=== PATIENT | female | born 1960 | race Caucasian/White ===

== ENCOUNTER → 2018-10-31 10:21 | Outpatient (CLI) | payer OTHER, SELFPAY | PROVIDERS: PCP Nurse Practitioner Family; Visit Provider Family Medicine | DX: S81.802A Unspecified open wound, left lower leg, initial encounter (principal); K70.30 Alcoholic cirrhosis of liver without ascites; D68.4 Acquired coagulation factor deficiency | CPT/HCPCS: 11042; 11045; 99203; 99212 ==

== ENCOUNTER → 2018-11-03 13:11 | Outpatient (CLI) | payer OTHER, SELFPAY | PROVIDERS: PCP Nurse Practitioner Family; Visit Provider Family Medicine | DX: S81.802D Unspecified open wound, left lower leg, subsequent encounter (principal) | CPT/HCPCS: 99213 ==

== ENCOUNTER → 2018-11-05 14:41 | Outpatient (CLI) | payer OTHER, MEDICAID, SELFPAY | PROVIDERS: PCP Nurse Practitioner Family; Visit Provider Family Medicine | DX: S81.802A Unspecified open wound, left lower leg, initial encounter (principal); K70.30 Alcoholic cirrhosis of liver without ascites; D68.4 Acquired coagulation factor deficiency | CPT/HCPCS: 11042; 97605 ==

== ENCOUNTER → 2018-11-10 13:04 | Outpatient (CLI) | payer OTHER, SELFPAY | PROVIDERS: PCP Nurse Practitioner Family; Visit Provider Family Medicine | DX: S81.802A Unspecified open wound, left lower leg, initial encounter (principal) | CPT/HCPCS: 97605; 99213 ==

== ENCOUNTER → 2018-11-12 13:12 | Outpatient (CLI) | payer OTHER, MEDICAID, SELFPAY | PROVIDERS: PCP Nurse Practitioner Family; Visit Provider Family Medicine | DX: S81.802A Unspecified open wound, left lower leg, initial encounter (principal); K70.30 Alcoholic cirrhosis of liver without ascites; D68.4 Acquired coagulation factor deficiency | CPT/HCPCS: 11042; 11045; 97605 ==

== ENCOUNTER → 2018-11-14 10:10 | Outpatient (CLI) | payer OTHER, MEDICAID, SELFPAY | PROVIDERS: PCP Nurse Practitioner Family; Visit Provider Family Medicine | DX: S81.802A Unspecified open wound, left lower leg, initial encounter (principal) | CPT/HCPCS: 97605 ==

== ENCOUNTER → 2018-11-17 13:02 | Outpatient (CLI) | payer OTHER, MEDICAID, SELFPAY | PROVIDERS: PCP Nurse Practitioner Family; Visit Provider Family Medicine | DX: S81.802A Unspecified open wound, left lower leg, initial encounter (principal) | CPT/HCPCS: 97605 ==

== ENCOUNTER → 2018-11-19 14:41 | Outpatient (CLI) | payer OTHER, MEDICAID, SELFPAY | PROVIDERS: PCP Nurse Practitioner Family; Visit Provider Family Medicine | DX: S81.802A Unspecified open wound, left lower leg, initial encounter (principal) | CPT/HCPCS: 99211 ==

== ENCOUNTER → 2018-11-21 13:36 | Outpatient (CLI) | payer OTHER, MEDICAID, SELFPAY | PROVIDERS: PCP Nurse Practitioner Family; Visit Provider Family Medicine | DX: S81.802A Unspecified open wound, left lower leg, initial encounter (principal) | CPT/HCPCS: 11042; 97605 ==

== ENCOUNTER → 2018-11-26 13:00 | Outpatient (CLI) | payer OTHER, MEDICAID, SELFPAY | PROVIDERS: PCP Nurse Practitioner Family; Visit Provider Family Medicine | DX: S81.802A Unspecified open wound, left lower leg, initial encounter (principal) | CPT/HCPCS: 97605 ==

== ENCOUNTER → 2018-11-28 13:09 | Outpatient (CLI) | payer OTHER, MEDICAID, SELFPAY | PROVIDERS: PCP Nurse Practitioner Family; Visit Provider Family Medicine | DX: S81.802A Unspecified open wound, left lower leg, initial encounter (principal); K70.30 Alcoholic cirrhosis of liver without ascites; D68.4 Acquired coagulation factor deficiency | CPT/HCPCS: 11042; 99212 ==

== ENCOUNTER → 2018-12-01 13:13 | Outpatient (CLI) | payer OTHER, MEDICAID, SELFPAY | PROVIDERS: PCP Nurse Practitioner Family; Visit Provider Family Medicine | DX: S81.802A Unspecified open wound, left lower leg, initial encounter (principal); K70.30 Alcoholic cirrhosis of liver without ascites; D68.4 Acquired coagulation factor deficiency | CPT/HCPCS: 11042; 87070; 87075; 87205 ==

== ENCOUNTER → 2018-12-05 13:14 | Outpatient (CLI) | payer OTHER, MEDICAID, SELFPAY | PROVIDERS: PCP Nurse Practitioner Family; Visit Provider Family Medicine | DX: S81.802A Unspecified open wound, left lower leg, initial encounter (principal); K70.30 Alcoholic cirrhosis of liver without ascites; D68.4 Acquired coagulation factor deficiency; L08.9 Local infection of the skin and subcutaneous tissue, unspecified | CPT/HCPCS: 97597; 99214 ==

== ENCOUNTER → 2018-12-12 13:17 | Outpatient (CLI) | payer OTHER, MEDICAID, SELFPAY | PROVIDERS: PCP Nurse Practitioner Family; Visit Provider Family Medicine | DX: S81.802A Unspecified open wound, left lower leg, initial encounter (principal); K70.30 Alcoholic cirrhosis of liver without ascites; D68.4 Acquired coagulation factor deficiency; L08.9 Local infection of the skin and subcutaneous tissue, unspecified; T88.7XXA Unspecified adverse effect of drug or medicament, initial encounter | CPT/HCPCS: 17250; 99213 ==

== ENCOUNTER → 2018-12-18 14:47 | Outpatient (CLI) | payer OTHER, MEDICAID, SELFPAY | PROVIDERS: PCP Nurse Practitioner Family; Visit Provider Family Medicine | DX: S81.802A Unspecified open wound, left lower leg, initial encounter (principal) | CPT/HCPCS: 17250; 99214 ==

== ENCOUNTER 2018-12-18 16:23 | Emergency (ER) | payer OTHER, MEDICAID, SELFPAY ==
[2018-12-18 16:30] VITALS: BP 173/110; PULSE 105; RESP 18; TEMP 36.9; O2SAT 100
--- NOTE | 2018-12-18 16:32 | ED.EXTPRO ---
HPI - Extremity Problem <Babs Garsia PA-C - Last Filed: 12/18/18 20:49> General Chief complaint: Extremity Problem,Nontraumatic Stated complaint: RT 1ST TOE PAIN Time Seen by Provider: 12/18/18 16:31 Source: patient Mode of arrival: ambulatory Limitations: no limitations History of Present Illness HPI Narrative: Patient is sent here from [facility], where she has been undergoing treatment for left thigh hematoma, due to right great toe swelling and pain. They noted this when she was there today. She states that she was out gardening wearing sandals on Saturday, and started to notice pain and swelling and dark under the nail Saturday morning. She states pain was actually significantly worse on Saturday night and has gradually improved since then to where she barely feels it now. She states she has been using Neosporin, also tried Epsom salts but he seemed increased pain, ice has helped. She states that she does not know of any specific bites or injury, denies any new trauma. She states that she has been on clindamycin from the wound Center which was stopped on Saturday due to diarrhea, was changed to doxy and she has vomiting on that, last early this morning. This was discontinued at the wound center today. She states that she has been drinking Gatorade, still has some nausea. She states she has not had any fever with this toe lesion. She has not noted any spread of redness or new color changes in the last day or so. Related Data Allergies Allergy/AdvReac Type Severity Reaction Status Date / Time Iodine and Iodide Containing Allergy Verified 12/18/18 16:41 Produc Penicillins Allergy Verified 12/18/18 16:41 Review of Systems <Babs Garsia PA-C - Last Filed: 12/18/18 20:49> Review of Systems ROS Unobtainable: All systems reviewed & are unremarkable except as noted in HPI and below PFSH <Babs Garsia PA-C - Last Filed: 12/18/18 20:49> Medical History (Updated 12/18/18 @ 20:48 by Babs Garsia PA-C) Heart murmur (Chronic) No chronic problems (Inactive) Surgical History H/O removal of thyroglossal duct cyst (Chronic) Social History Smoking Status: Never smoker Social History Smoking Status: Never smoker Exam <Babs Garsia PA-C - Last Filed: 12/18/18 20:49> Narrative Exam Narrative: GENERAL APPEARANCE: Patient sitting comfortably, in no distress. LUNGS: Clear to auscultation bilaterally. HEART: Rate and rhythm regular with II/ systolic ejection murmur, normal S1 and S2, no S3 or S4. DERM: Right great toenail is loose with a 100% underlying subungual hematoma. Minimal erythema at the borders. There is small patch of scab on the right great toe pad plantar surface and 2 small scab schmitt on the medial border. Skin feels slightly spongy but no circumscribed fluid collection palpable or visible MUSCULOSKELETAL: No bony tenderness over the right great toe or metatarsal, full range of motion with strength intact against resistance NEUROVASCULAR: Right foot warm and pink, PT and DP pulses 2+ Initial Vital Signs Initial Vital Signs: Vital Signs Temperature 98.4 F 12/18/18 16:30 Pulse Rate 105 H 12/18/18 16:30 Respiratory Rate 18 12/18/18 16:30 Blood Pressure 173/110 H 12/18/18 16:30 Pulse Oximetry 100 12/18/18 16:30 <Elvia Rashid DO - Last Filed: 12/22/18 19:08> Initial Vital Signs Initial Vital Signs: Vital Signs Temperature 98.4 F 12/18/18 16:30 Pulse Rate 105 H 12/18/18 16:30 Respiratory Rate 18 12/18/18 16:30 Blood Pressure 173/110 H 12/18/18 16:30 Pulse Oximetry 100 12/18/18 16:30 Course <Babs Garsia PA-C - Last Filed: 12/18/18 20:49> Additional Information: Reviewed findings with Dr. Rashid who also saw the patient. We do suspect this is related to bite, probably spider, since she was out in the garden barefoot and in sandals prior to this starting. She has not had any worsening pain, swelling or redness and is actually much improved from a couple of days ago. Suspect her hypertension and tachycardia are and related as she has had vomiting and diarrhea from her antibiotics, however she stopped those as of this morning and is not having vomiting this afternoon. Advised follow-up with PCP tomorrow for recheck before the weekend, and she is agreeable with this plan as well as to return if looking acutely worse over the weekend Orders Ordered: Discontinued Medications Ondansetron HCl (Zofran Odt) 4 mg SL NOW ONE Stop: 12/18/18 16:44 Last Admin: 12/18/18 16:57 Dose: 4 mg Vital Signs - 8 hr 12/18/18 16:30 12/18/18 18:03 Temperature 98.4 F Pulse Rate 105 H 70 Respiratory Rate 18 17 Blood Pressure 173/110 H 169/70 H Pulse Oximetry 100 96 <Evlia Rashid, - Last Filed: 12/22/18 19:08> Orders Ordered: Discontinued Medications Ondansetron HCl (Zofran Odt) 4 mg SL NOW ONE Stop: 12/18/18 16:44 Last Admin: 12/18/18 16:57 Dose: 4 mg Vital Signs - 8 hr 12/18/18 16:30 12/18/18 18:03 Temperature 98.4 F Pulse Rate 105 H 70 Respiratory Rate 18 17 Blood Pressure 173/110 H 169/70 H Pulse Oximetry 100 96 Discharge Plan Departure Patient Disposition: Home Clinical Impression: Subungual hematoma Spider bite wound Qualifiers: Encounter type: initial encounter Injury intent: accidental or unintentional Qualified Code(s): T63.301A - Toxic effect of unspecified spider venom, accidental (unintentional), initial encounter Discharge Date/Time: 12/18/18 18:05 Interventions: ED Discharge Assessment Last Done: 12/18/18 18:03 Instructions: DI for Spider Bites, DI for Subungual Hematoma Activity Restrictions/Additional Instructions: Since the pain in your toe is much better, and you do not have any worsening swelling or skin changes as, you can monitor this at home. The nail is already loose and will likely fall off at some point, but for now it is protecting the nail bed. You may want to bandage it for protection when you are out in about, you can leave it open to air when you are resting. You can do hot soaks if you like. There are schmitt on your toe that may be due to a spider bite, especially since you do have brown recluse in your area and were out in the garden before this began. You do not appear to have an acute infection, however since you have been on antibiotics recently this should be watched. Please call your PCP 1st thing in the morning and let them know that you were seen here and we would like you to recheck this tomorrow so that it can be reassessed prior to the weekend with you off of the antibiotics. Please return here as we talked about if you have any acutely worsening pain or swelling again or new symptoms such as spreading redness or fever. Referrals: Ileana Pritchard ARNP [Primary Care Provider] - <Elvia Rashid DO - Last Filed: 12/22/18 19:08> Cosign ED Attending Cosignature Attestation: I was immediately available in the department for consultation. This documentation has been reviewed and I agree with assessment and plan. Supervised by Elvia Rashid DO
--- NOTE | 2018-12-18 16:43 | DI.RAD.S_ITS ---
PROCEDURE: XR FOOT RT MIN 3V INDICATIONS: great toe pain, hematoma, no trauma TECHNIQUE: 3 views of the foot were acquired. COMPARISON: None. FINDINGS: Bones: No fractures or dislocations. No suspicious bony lesions. Age-appropriate bony degenerative changes are seen. Soft tissues: Tissue swelling is seen of the great toe. No radiopaque or bodies are seen. IMPRESSION: Soft tissue swelling of the great toe, without an underlying bony abnormality seen. No radiopaque or bodies are seen. Dictated by: Oscar Sue M.D. on 12/18/2018 at 16:06 Approved by: Oscar Sue M.D. on 12/18/2018 at 16:07
[2018-12-18] MEDS: ONDANSETRON 4 MG ODT SL (16:57)
[2018-12-18 18:03] VITALS: BP 169/70; PULSE 70; RESP 17; O2SAT 96
== END 2018-12-18 18:05 | disposition home or self-care (01) ==
PROVIDERS: Emergency Provider Internal Medicine; PCP Nurse Practitioner Family; Referring Provider Family Medicine
DX: S90.411A Abrasion, right great toe, initial encounter (principal); T63.301A Toxic effect of unspecified spider venom, accidental (unintentional), initial encounter; R00.0 Tachycardia, unspecified; R03.0 Elevated blood-pressure reading, without diagnosis of hypertension
CPT/HCPCS: 73630; 93041; 99283

== ENCOUNTER → 2019-01-01 13:07 | Outpatient (CLI) | payer OTHER, MEDICAID, SELFPAY | PROVIDERS: PCP Nurse Practitioner Family; Visit Provider Family Medicine | DX: S81.802A Unspecified open wound, left lower leg, initial encounter (principal); K70.30 Alcoholic cirrhosis of liver without ascites; D68.4 Acquired coagulation factor deficiency | CPT/HCPCS: 17250 ==

== ENCOUNTER → 2019-01-08 13:16 | Outpatient (CLI) | payer OTHER, MEDICAID, SELFPAY | PROVIDERS: PCP Nurse Practitioner Family; Visit Provider Family Medicine | DX: S81.802D Unspecified open wound, left lower leg, subsequent encounter (principal); K70.30 Alcoholic cirrhosis of liver without ascites; D68.4 Acquired coagulation factor deficiency | CPT/HCPCS: 99213 ==

== ENCOUNTER → 2019-01-20 13:16 | Outpatient (CLI) | payer OTHER, MEDICAID, SELFPAY | PROVIDERS: PCP Nurse Practitioner Family; Visit Provider Family Medicine | DX: Z48.817 Encounter for surgical aftercare following surgery on the skin and subcutaneous tissue (principal) | CPT/HCPCS: 99212; 99213 ==

== ENCOUNTER 2019-02-12 14:15 | Outpatient (RCR) | payer OTHER, MEDICAID, SELFPAY ==
--- NOTE | 2019-01-01 12:50 | PT.OIE ---
Current Diagnoses Cervicalgia (01/01/19) Other abnormalities of gait and mobility (01/01/19) Past Medical History (Last Updated 12/18/18 @ 20:48 by Babs Garsia PA-C) Heart murmur (Chronic) No chronic problems (Inactive) Past Surgical History (Last Reviewed 12/18/18 @ 16:52 by Babs Garsia PA-C) H/O removal of thyroglossal duct cyst (Chronic) Provider Visit Care Team Role Provider Type ROXIE Bernard Attending Provider Non-Staff Primary Care Provider Specialty: Medical Address: [address] , [place], [address] Email: Physical Therapy Initial Evaluation PT-OP-A Visit Information Start: 01/01/19 11:22 Freq: Status: Active Protocol: Document 01/01/19 10:30 HH (Rec: 01/01/19 12:02 [email or web address]) Out-Patient Physical Therapy Visit Information Visit Information Visit Type Initial Evaluation Visit Start Time 10:30 Visit Stop Time 11:15 Total Visit Minutes 45 Visit Number 1/9 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 Pt fell on her L lateral hip 3 months ago and had a large hematoma who had a hematoma removal surgery followed by wound vac for 2 months. She is currently going to wound clinic at for follow ups. She reports her L hip and gait stability has gotten worse since then. She currently cannot sleep on her L side anymore. In addition, her neck pain started 2 months ago most likely due to her sleeping position. Her neck pain limits her to turn her head now while driving and feels like rotated to right all the time, along with constant headache from the back of the skull. She tried ice, lidocane, heat pad but they only helped minimally. Her referring physician told her to cont her activities as tolerated without restriction. She also got bitten at the R big toe by a raccoon 2 weeks and had a staff infection. Future Testing and Treatments Planned Currently attending wound clinic for her L hip Treatment Goals Patient/Caregiver Goals 1. Able to return her exercise routine : racquet ball, hiking, walk at [employer] 3times /week 2. To reduce her neck pain 3. able to sit and sleep on her L side Prior Functional Status Baseline Function- ADL's Independent Baseline Function- Mobility Independent Baseline Function- Gait normal gait Baseline Function- Recreation/Hobbies Active in playing racquet ball , hiking, walk at [employer] 3 times/ week Baseline Function- Other able to sit and sleep on her L side able to turn her head without pain while driving able Current Functional Impairments (Reported) Functional Limitations- ADL's unable to sit /sleep on her L side Functional Limitations- Mobility/Gait antaglic gait on LLE noticed Functional Limitations- Recreation/ unable to play sports, hike Hobbies and long walk only able to tolerate 1/4 mile of walking distance Personal Factors Other Personal Factors That May Effect her current wound on L thigh Therapy/Recovery PT-OP-C Subjective Start: 01/01/19 11:22 Freq: Status: Active Protocol: Document 01/01/19 10:30 (Rec: 01/01/19 12:02 [email or web address]) OP-PT Subjective Patient Comments Patient Comments the neck pain is worse than my hip Patient Reported Progress Worse Patient Questionnaires Foot & Ankle Ability Measure- ADL and Sports FAAM-ADL Score 34 FAAM-ADL Impairment 40 to 59% Impaired (Score 33- 49) FAAM-Sport Score 13 FAAM-Sport Impairment 40 to 59% Impaired (Score 12- 18) Lower Extremity Functional Scale LEFS Score 25 LEFS Impairment 60 to 79% Impaired (Score 17- 31) Neck Disability Index NDI Score 25 Neck Disability Index Impairment 40 to 59% Impaired (Score 20- 29) OP-PT Pain Assessment Location Neck Intensity 6 Scale Used Numeric (1 - 10) Description Aching Dull Frequency Constant Pain Aggravating Factors Position Activity Exercise Standing Sitting Pain Alleviating Factors Cold Heat Inactivity Lying Supine L hip Pain Location Details lateral thigh Intensity 6 Scale Used Numeric (1 - 10) Description Aching Dull Frequency Frequent Pain Aggravating Factors Position Activity Exercise Sitting Pain Alleviating Factors Cold Heat Inactivity Lying Supine PT-OP-F Manual Assessment Start: 01/01/19 11:22 Freq: Status: Active Protocol: Document 01/01/19 10:30 HH (Rec: 01/01/19 12:02 [email or web address]) Manual Assessments Soft Tissue Assessment Soft Tissue Mobility Assessment Significant tenderness to pressure on suboccipitals R>L, cervical paraspinals and trapezius Significant sensitive to touch on L trochanteric region Joint Mobility Assessment Joint Mobility Assessment muscle guarding and spasm to touch noticed during assessment. Unable to assess joint mobility PT-OP-G Mobility & Gait Start: 01/01/19 11:22 Freq: Status: Active Protocol: Document 01/01/19 10:30 HH (Rec: 01/01/19 12:02 [email or web address]) OP Mobility Evaluation Bed Mobility Supine to and from Sit Pt has to support her r side of the neck OP Gait Assessment Gait Gait Assistance Required: Independent Assistive Devices Assistive Device None Gait Deviations General Gait Pattern Antalgic Decreased Stride Length Decreased Feet Clearance Factors Limiting Gait Function Factors Limiting Gait Function Decreased Activity Tolerance Decreased Strength Limited Range of Motion Pain Poor Balance Comments Gait Comments L antalgic gait noticed. Insufficient heel strike and early heel raise from terminal stance on LLE. PT-OP-J Posture/Palpation/Skin Start: 01/01/19 11:22 Freq: Status: Active Protocol: Document 01/01/19 10:30 HH (Rec: 01/01/19 12:02 [email or web address]) Posture Evaluation Position Standing Evaluation View Anterior Head/C-Spine Posture Rotated Right Forward Head T-Spine Posture Increased Kyphosis Shoulder Posture (R) Elevated Weight Distribution Weight Shifted Right PT-OP-K Range of Motion Start: 01/01/19 11:22 Freq: Status: Active Protocol: Document 01/01/19 10:30 HH (Rec: 01/01/19 12:02 [email or web address]) Cervical Spine Range of Motion Cervical Spine Active Degrees Testing Position Sitting Flexion 40 Extension 40 Rotation Left 35 Rotation Right 40 Lateral Flexion Left 35 Lateral Flexion Right 35 ROM Limitations Muscle Weakness Muscle Tone Pain Comments Severe pain at end range during AROM (ext > rotation > lateral flexion) Hip Goniometric Range of Motion Hip Right Active Hip ROM WFL Yes Flexion w/Knee Flexed 120 Extension 20 Abduction 40 Left Active Hip ROM WFL Yes Flexion w/Knee Flexed 120 Extension 20 Abduction 40 PT-OP-M Strength Start: 01/01/19 11:22 Freq: Status: Active Protocol: Document 01/01/19 10:30 HH (Rec: 01/01/19 12:02 [email or web address]) Cervical Spine Strength Cervical Spine Manual Muscle Testing Testing Position Sitting Flexion (C1-2) 3+ Fair+ Extension 3 Fair Rotation Left 3 Fair Rotation Right 3 Fair Lateral Flexion Left (C3) 3 Fair Lateral Flexion Right (C3) 3 Fair Reason Not Measured Muscle Tone Pain Comments pt presents fear avoidance for muscle contraction, along with significant pain. Noticeable spasm on cervical paraspinals and trapezius. Hip Strength Hip Manual Muscle Testing Right Flexion (L2) 5 Normal Extension (S1) 5 Normal Abduction 5 Normal Adduction 5 Normal Left Flexion (L2) 4+ Good+ Extension (S1) 4+ Good+ Abduction 4- Good- Adduction 4+ Good+ PT-OP-Q Treatments Start: 01/01/19 11:22 Freq: Status: Active Protocol: Document 01/01/19 10:30 HH (Rec: 01/01/19 12:02 [email or web address]) Manual Therapy Treatment Soft Tissue Mobilization suboccipital release Mobilization Type Strumming Sustained Pressure Trigger Point Release Intensity/Depth Superficial Body Position Supine Manual Traction cervical distraction Body Position Supine Reps/Duration 5 mins PT-OP-T Assessment and Plan Start: 01/01/19 11:22 Freq: Status: Active Protocol: Document 01/01/19 10:30 HH (Rec: 01/01/19 12:02 [email or web address]) Physical Therapy Assessment Rehab Potential Rehabilitation Potential Good Evaluation Complexity Number of Personal Factors/Comorbidities 1-2 Number of Body Systems Impaired 1-2 Clinical Presentation at Evaluation Stable Impairments Impairments Activity Tolerance Balance Edema Functional Activities Functional Mobility Gait Pain Posture ROM Sensation Soft Tissue Mobility Strength Tone Goals HEP Impairment Pt does not have a HEP Watch Assembler Goal (LTG) Pt will comply to HEP independently and safely to improve overall functional strength and mobiltiy therefore she could return to her PLOF (play raquet ball, hiking ..etc) LTG Duration 10 weeks activity tolerance Impairment unable to claude > 1/4 mile of walking distance Halfway Goal (LTG) Pt will be able to walk 1 mile 3 times a week to improve overall activity tolerance and functional mobility. 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 LTG Duration 10 weeks Assessment Summary Assessment Pt is a 58 yo female presents to clinic with severe neck pain and L hip after a fall 3 months ago. Upon assessment, pt appears very anxious with any cervical movements and pressure/touch on L thigh ( surgical site). Pt currently is unable to sit/ lay on her L side who also uses UE support on his R side of the neck for supine to sit / static sitting. Her hypersensitivity to touch and pressure on cervical region makes assessment difficult. There's noticeable muscle spasm and increase muscular activation on R upper trap and paraspinals. However, her L hip strength and ROM appears close to WFL but cont to have L antalgic gait. Will need to her single leg balance for next visit. Suboccipital release and cervical traction were given at the end of session but pt appears very afraid to any cervical movements. Constant cues needed for deep breathing and relaxation. Pt will be a good candidate for skilled therapy to address aforementioned symptoms through gait training , relaxation techniques, neuromuscular reeducation and overall strengthening in order to return to her PLOF. Physical Therapy Plan Frequency and Duration Frequency of Treatment 2x/Week Duration of Treatment 10 weeks Plan of Care Start Date 01/01/19 Plan of Care End Date 03/03/19 Therapeutic Interventions Therapeutic Interventions Aquatic Therapy Balance Training Gait Training Home Exercise Program Joint Mobilizations Manual Therapy Neuromuscular Re-education Patient/Caregiver Education Self-Care/Home Management Soft Tissue Mobilization Taping Therapeutic Activities Therapeutic Exercises Modalities Cold Pack/Ice Massage Electric Stimulation Hot Packs Infrared Therapy Traction- Mechanical Ultrasound Next Visit Focus/Plan Next Note Type Treatment Note Next Visit Plan check single leg balance to provide self cervical shoulder stretch / ROM HEP manual therapy, relaxation, deep breathing ex as claude hip strengthening as claude gait training
--- NOTE | 2019-01-07 15:51 | PT.OTN ---
Current Diagnoses Cervicalgia (01/07/19) Other abnormalities of gait and mobility (01/07/19) Physical Therapy Treatment Note PT-OP-A Visit Information Start: 01/01/19 11:22 Freq: Status: Active Protocol: Document 01/07/19 15:41 [facility]AK (Rec: 01/07/19 15:51 SAK [id number]) Out-Patient Physical Therapy Visit Information Visit Information Visit Type Treatment Note Visit Start Time 14:30 Visit Stop Time 15:30 Total Visit Minutes 60 Visit Number 2/9 Number of JIGMAKER Visits 0 Evaluation Information Evaluation Date 01/01/19 PT-OP-B Current Condition Start: 01/01/19 11:22 Freq: Status: Active Protocol: Document 01/01/19 10:30 HH (Rec: 01/01/19 12:02 HH [email or web address]) Current Condition History of Current Condition Onset Date 3 months ago Current Complaints sever neck pain, L hip pain and impaired gait History of Current Condition Pt presents to clinic today with primary c/o of severe neck pain R>L, L hip pain and abnormal gait. Pt fell on her L lateral hip 3 months ago and had a large hematoma who had a hematoma removal surgery followed by wound vac for 2 months. She is currently going to wound clinic at for follow ups. She reports her L hip and gait stability has gotten worse since then. She currently cannot sleep on her L side anymore. In addition, her neck pain started 2 months ago most likely due to her sleeping position. Her neck pain limits her to turn her head now while driving and feels like rotated to right all the time, along with constant headache from the back of the skull. She tried ice, lidocane, heat pad but they only helped minimally. Her referring physician told her to cont her activities as tolerated without restriction. She also got bitten at the R big toe by a raccoon 2 weeks and had a staff infection. Future Testing and Treatments Planned Currently attending wound clinic for her L hip Treatment Goals Patient/Caregiver Goals 1. Able to return her exercise routine : racquet ball, hiking, walk at [facility] 3times /week 2. To reduce her neck pain 3. able to sit and sleep on her L side Prior Functional Status Baseline Function- ADL's Independent Baseline Function- Mobility Independent Baseline Function- Gait normal gait Baseline Function- Recreation/Hobbies Active in playing racquet ball , hiking, walk at [facility] 3 times/ week Baseline Function- Other able to sit and sleep on her L side able to turn her head without pain while driving able Current Functional Impairments (Reported) Functional Limitations- ADL's unable to sit /sleep on her L side Functional Limitations- Mobility/Gait antaglic gait on LLE noticed Functional Limitations- Recreation/ unable to play sports, hike Hobbies and long walk only able to tolerate 1/4 mile of walking distance Personal Factors Other Personal Factors That May Effect her current wound on L thigh Therapy/Recovery PT-OP-C Subjective Start: 01/01/19 11:22 Freq: Status: Active Protocol: Document 01/01/19 10:30 HH (Rec: 01/01/19 12:02 HH [email or web address]) OP-PT Subjective Patient Comments Patient Comments the neck pain is worse than my hip Patient Reported Progress Worse Patient Questionnaires Foot & Ankle Ability Measure- ADL and Sports FAAM-ADL Score 34 FAAM-ADL Impairment 40 to 59% Impaired (Score 33- 49) FAAM-Sport Score 13 FAAM-Sport Impairment 40 to 59% Impaired (Score 12- 18) Lower Extremity Functional Scale LEFS Score 25 LEFS Impairment 60 to 79% Impaired (Score 17- 31) Neck Disability Index NDI Score 25 Neck Disability Index Impairment 40 to 59% Impaired (Score 20- 29) OP-PT Pain Assessment Location Neck Intensity 6 Scale Used Numeric (1 - 10) Description Aching Dull Frequency Constant Pain Aggravating Factors Position Activity Exercise Standing Sitting Pain Alleviating Factors Cold Heat Inactivity Lying Supine L hip Pain Location Details lateral thigh Intensity 6 Scale Used Numeric (1 - 10) Description Aching Dull Frequency Frequent Pain Aggravating Factors Position Activity Exercise Sitting Pain Alleviating Factors Cold Heat Inactivity Lying Supine PT-OP-F Manual Assessment Start: 01/01/19 11:22 Freq: Status: Active Protocol: Document 01/01/19 10:30 HH (Rec: 01/01/19 12:02 HH [email or web address]) Manual Assessments Soft Tissue Assessment Soft Tissue Mobility Assessment Significant tenderness to pressure on suboccipitals R>L, cervical paraspinals and trapezius Significant sensitive to touch on L trochanteric region Joint Mobility Assessment Joint Mobility Assessment muscle guarding and spasm to touch noticed during assessment. Unable to assess joint mobility PT-OP-G Mobility & Gait Start: 01/01/19 11:22 Freq: Status: Active Protocol: Document 01/01/19 10:30 HH (Rec: 01/01/19 12:02 [email or web address]) OP Mobility Evaluation Bed Mobility Supine to and from Sit Pt has to support her r side of the neck OP Gait Assessment Gait Gait Assistance Required: Independent Assistive Devices Assistive Device None Gait Deviations General Gait Pattern Antalgic Decreased Stride Length Decreased Feet Clearance Factors Limiting Gait Function Factors Limiting Gait Function Decreased Activity Tolerance Decreased Strength Limited Range of Motion Pain Poor Balance Comments Gait Comments L antalgic gait noticed. Insufficient heel strike and early heel raise from terminal stance on LLE. PT-OP-J Posture/Palpation/Skin Start: 01/01/19 11:22 Freq: Status: Active Protocol: Document 01/01/19 10:30 HH (Rec: 01/01/19 12:02 [email or web address]) Posture Evaluation Position Standing Evaluation View Anterior Head/C-Spine Posture Rotated Right Forward Head T-Spine Posture Increased Kyphosis Shoulder Posture (R) Elevated Weight Distribution Weight Shifted Right PT-OP-K Range of Motion Start: 01/01/19 11:22 Freq: Status: Active Protocol: Document 01/01/19 10:30 HH (Rec: 01/01/19 12:02 [email or web address]) Cervical Spine Range of Motion Cervical Spine Active Degrees Testing Position Sitting Flexion 40 Extension 40 Rotation Left 35 Rotation Right 40 Lateral Flexion Left 35 Lateral Flexion Right 35 ROM Limitations Muscle Weakness Muscle Tone Pain Comments Severe pain at end range during AROM (ext > rotation > lateral flexion) Hip Goniometric Range of Motion Hip Right Active Hip ROM WFL Yes Flexion w/Knee Flexed 120 Extension 20 Abduction 40 Left Active Hip ROM WFL Yes Flexion w/Knee Flexed 120 Extension 20 Abduction 40 PT-OP-M Strength Start: 01/01/19 11:22 Freq: Status: Active Protocol: Document 01/01/19 10:30 HH (Rec: 01/01/19 12:02 [email or web address]) Cervical Spine Strength Cervical Spine Manual Muscle Testing Testing Position Sitting Flexion (C1-2) 3+ Fair+ Extension 3 Fair Rotation Left 3 Fair Rotation Right 3 Fair Lateral Flexion Left (C3) 3 Fair Lateral Flexion Right (C3) 3 Fair Reason Not Measured Muscle Tone Pain Comments pt presents fear avoidance for muscle contraction, along with significant pain. Noticeable spasm on cervical paraspinals and trapezius. Hip Strength Hip Manual Muscle Testing Right Flexion (L2) 5 Normal Extension (S1) 5 Normal Abduction 5 Normal Adduction 5 Normal Left Flexion (L2) 4+ Good+ Extension (S1) 4+ Good+ Abduction 4- Good- Adduction 4+ Good+ PT-OP-Q Treatments Start: 01/01/19 11:22 Freq: Status: Active Protocol: Document 01/07/19 15:41 [facility] (Rec: 01/07/19 15:51 [facility] [id number]) Therapeutic Exercises Supine Exercises hip ab/ER Equipment Used L2 TB Reps/Minutes 10x pillow squeeze Reps/Minutes 10x gluteal set Reps/Minutes 10x cervical rotation Reps/Minutes 5x2 Comments pain-freeROM Shld flex Reps/Minutes 10x active, plus endrange stretch x 30 pec stretch Reps/Minutes 2x30 Comments passive, manual chin tuck Comments refused due to pain Standing Exercises shld ER Resistance L1 TB Reps/Minutes 10x row Resistance L1 TB Reps/Minutes 10x wall posture Reps/Minutes 3 min Manual Therapy Treatment Soft Tissue Mobilization christine UT, c/s Intensity/Depth Moderate Body Position Hooklying suboccipital release Mobilization Type Strumming Sustained Pressure Trigger Point Release Intensity/Depth Moderate Body Position Supine Manual Techniques 1 Type contract/relax eyes for c/s rotation Body Position Hooklying Self-Care/Home Management Treatment Education Patient Education Home Exercise Program Pain Management Posture Other Education issued written HEP PT-OP-R Modalities Start: 01/01/19 11:22 Freq: Status: Active Protocol: Document 01/07/19 15:41 [facility] (Rec: 01/07/19 15:51 [facility] [id number]) Hot Pack/Cold Pack Treatment Hot Pack Patient Position Hooklying Treatment Duration (minutes) 15 Patient Tolerance Good PT-OP-T Assessment and Plan Start: 01/01/19 11:22 Freq: Status: Active Protocol: Document 01/07/19 15:41 [facility] (Rec: 01/07/19 15:51 [facility] [id number]) Physical Therapy Assessment Goals HEP Impairment Pt does not have a HEP Penitentiary Goal (LTG) Pt will comply to HEP independently and safely to improve overall functional strength and mobiltiy therefore she could return to her PLOF (play raquet ball, hiking ..etc) LTG Duration 10 weeks activity tolerance Impairment unable to claude > 1/4 mile of walking distance Pool Attendant Goal (LTG) Pt will be able to walk 1 mile 3 times a week to improve overall activity tolerance and functional mobility. 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 LTG Duration 10 weeks Assessment Summary Assessment Patient demonstrated good understanding of importance of postural correction to decrease stress to neck joints and overactivation of musculature. Improved tolerance for manual treatment and patient reported decreased pain with moist heat . Difficult to achieve suboccipital release due to muscle tension. Physical Therapy Plan Frequency and Duration Frequency of Treatment 2x/Week Duration of Treatment 10 weeks Plan of Care Start Date 01/01/19 Plan of Care End Date 03/03/19 Therapeutic Interventions Therapeutic Interventions Aquatic Therapy Balance Training Gait Training Home Exercise Program Joint Mobilizations Manual Therapy Neuromuscular Re-education Patient/Caregiver Education Self-Care/Home Management Soft Tissue Mobilization Taping Therapeutic Activities Therapeutic Exercises Modalities Cold Pack/Ice Massage Electric Stimulation Hot Packs Infrared Therapy Traction- Mechanical Ultrasound Next Visit Focus/Plan Next Note Type Treatment Note Next Visit Plan Assess response to today's treatment, progress HEP as tolerated. Continue with manual treatment, modalities, ther ex, and patient education as tolerated
--- NOTE | 2019-01-07 15:52 | PT.OTN ---
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 Pt fell on her L lateral hip 3 months ago and had a large hematoma who had a hematoma removal surgery followed by wound vac for 2 months. She is currently going to wound clinic at for follow ups. She reports her L hip and gait stability has gotten worse since then. She currently cannot sleep on her L side anymore. In addition, her neck pain started 2 months ago most likely due to her sleeping position. Her neck pain limits her to turn her head now while driving and feels like rotated to right all the time, along with constant headache from the back of the skull. She tried ice, lidocane, heat pad but they only helped minimally. Her referring physician told her to cont her activities as tolerated without restriction. She also got bitten at the R big toe by a raccoon 2 weeks and had a staff infection. Future Testing and Treatments Planned Currently attending wound clinic for her L hip Treatment Goals Patient/Caregiver Goals 1. Able to return her exercise routine : racquet ball, hiking, walk at [facility] 3times /week 2. To reduce her neck pain 3. able to sit and sleep on her L side Prior Functional Status Baseline Function- ADL's Independent Baseline Function- Mobility Independent Baseline Function- Gait normal gait Baseline Function- Recreation/Hobbies Active in playing racquet ball , hiking, walk at [facility] 3 times/ week Baseline Function- Other able to sit and sleep on her L side able to turn her head without pain while driving able Current Functional Impairments (Reported) Functional Limitations- ADL's unable to sit /sleep on her L side Functional Limitations- Mobility/Gait antaglic gait on LLE noticed Functional Limitations- Recreation/ unable to play sports, hike Hobbies and long walk only able to tolerate 1/4 mile of walking distance Personal Factors Other Personal Factors That May Effect her current wound on L thigh Therapy/Recovery PT-OP-C Subjective Start: 01/01/19 11:22 Freq: Status: Active Protocol: Document 01/07/19 15:41 [facility]AK (Rec: 01/07/19 15:52 SAK [id number]) OP-PT Subjective Patient Comments Patient Comments No change Patient Questionnaires ABC- Activity Specific Balance Confidence Scale ABC Functional Impairment 80 to <100% Impaired (Score 1- 20) PT-OP-F Manual Assessment Start: 01/01/19 11:22 Freq: Status: Active Protocol: Document 01/01/19 10:30 HH (Rec: 01/01/19 12:02 HH [email or web address]) Manual Assessments Soft Tissue Assessment Soft Tissue Mobility Assessment Significant tenderness to pressure on suboccipitals R>L, cervical paraspinals and trapezius Significant sensitive to touch on L trochanteric region Joint Mobility Assessment Joint Mobility Assessment muscle guarding and spasm to touch noticed during assessment. Unable to assess joint mobility PT-OP-G Mobility & Gait Start: 01/01/19 11:22 Freq: Status: Active Protocol: Document 01/01/19 10:30 HH (Rec: 01/01/19 12:02 HH [email or web address]) OP Mobility Evaluation Bed Mobility Supine to and from Sit Pt has to support her r side of the neck OP Gait Assessment Gait Gait Assistance Required: Independent Assistive Devices Assistive Device None Gait Deviations General Gait Pattern Antalgic Decreased Stride Length Decreased Feet Clearance Factors Limiting Gait Function Factors Limiting Gait Function Decreased Activity Tolerance Decreased Strength Limited Range of Motion Pain Poor Balance Comments Gait Comments L antalgic gait noticed. Insufficient heel strike and early heel raise from terminal stance on LLE. PT-OP-J Posture/Palpation/Skin Start: 01/01/19 11:22 Freq: Status: Active Protocol: Document 01/01/19 10:30 HH (Rec: 06/20/19 12:02 [email or web address]) Posture Evaluation Position Standing Evaluation View Anterior Head/C-Spine Posture Rotated Right Forward Head T-Spine Posture Increased Kyphosis Shoulder Posture (R) Elevated Weight Distribution Weight Shifted Right PT-OP-K Range of Motion Start: 01/01/19 11:22 Freq: Status: Active Protocol: Document 01/01/19 10:30 HH (Rec: 01/01/19 12:02 HH [email or web address]) Cervical Spine Range of Motion Cervical Spine Active Degrees Testing Position Sitting Flexion 40 Extension 40 Rotation Left 35 Rotation Right 40 Lateral Flexion Left 35 Lateral Flexion Right 35 ROM Limitations Muscle Weakness Muscle Tone Pain Comments Severe pain at end range during AROM (ext > rotation > lateral flexion) Hip Goniometric Range of Motion Hip Right Active Hip ROM WFL Yes Flexion w/Knee Flexed 120 Extension 20 Abduction 40 Left Active Hip ROM WFL Yes Flexion w/Knee Flexed 120 Extension 20 Abduction 40 PT-OP-M Strength Start: 01/01/19 11:22 Freq: Status: Active Protocol: Document 01/01/19 10:30 HH (Rec: 01/01/19 12:02 [email or web address]) Cervical Spine Strength Cervical Spine Manual Muscle Testing Testing Position Sitting Flexion (C1-2) 3+ Fair+ Extension 3 Fair Rotation Left 3 Fair Rotation Right 3 Fair Lateral Flexion Left (C3) 3 Fair Lateral Flexion Right (C3) 3 Fair Reason Not Measured Muscle Tone Pain Comments pt presents fear avoidance for muscle contraction, along with significant pain. Noticeable spasm on cervical paraspinals and trapezius. Hip Strength Hip Manual Muscle Testing Right Flexion (L2) 5 Normal Extension (S1) 5 Normal Abduction 5 Normal Adduction 5 Normal Left Flexion (L2) 4+ Good+ Extension (S1) 4+ Good+ Abduction 4- Good- Adduction 4+ Good+ PT-OP-Q Treatments Start: 01/01/19 11:22 Freq: Status: Active Protocol: Document 01/07/19 15:41 [facility] (Rec: 01/07/19 15:51 [facility] [id number]) Therapeutic Exercises Supine Exercises hip ab/ER Equipment Used L2 TB Reps/Minutes 10x pillow squeeze Reps/Minutes 10x gluteal set Reps/Minutes 10x cervical rotation Reps/Minutes 5x2 Comments pain-freeROM Shld flex Reps/Minutes 10x active, plus endrange stretch x 30 pec stretch Reps/Minutes 2x30 Comments passive, manual chin tuck Comments refused due to pain Standing Exercises shld ER Resistance L1 TB Reps/Minutes 10x row Resistance L1 TB Reps/Minutes 10x wall posture Reps/Minutes 3 min Manual Therapy Treatment Soft Tissue Mobilization christine [place], c/s Intensity/Depth Moderate Body Position Hooklying suboccipital release Mobilization Type Strumming Sustained Pressure Trigger Point Release Intensity/Depth Moderate Body Position Supine Manual Techniques 1 Type contract/relax eyes for c/s rotation Body Position Hooklying Self-Care/Home Management Treatment Education Patient Education Home Exercise Program Pain Management Posture Other Education issued written HEP PT-OP-R Modalities Start: 01/01/19 11:22 Freq: Status: Active Protocol: Document 01/07/19 15:41 [facility] (Rec: 01/07/19 15:51 [facility] [id number]) Hot Pack/Cold Pack Treatment Hot Pack Patient Position Hooklying Treatment Duration (minutes) 15 Patient Tolerance Good PT-OP-T Assessment and Plan Start: 01/01/19 11:22 Freq: Status: Active Protocol: Document 01/07/19 15:41 [facility] (Rec: 01/07/19 15:51 [facility] [id number]) Physical Therapy Assessment Goals HEP Impairment Pt does not have a HEP Shelter Goal (LTG) Pt will comply to HEP independently and safely to improve overall functional strength and mobiltiy therefore she could return to her PLOF (play raquet ball, hiking ..etc) LTG Duration 10 weeks activity tolerance Impairment unable to claude > 1/4 mile of walking distance Shelter Goal (LTG) Pt will be able to walk 1 mile 3 times a week to improve overall activity tolerance and functional mobility. 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 LTG Duration 10 weeks Assessment Summary Assessment Patient demonstrated good understanding of importance of postural correction to decrease stress to neck joints and overactivation of musculature. Improved tolerance for manual treatment and patient reported decreased pain with moist heat . Difficult to achieve suboccipital release due to muscle tension. Physical Therapy Plan Frequency and Duration Frequency of Treatment 2x/Week Duration of Treatment 10 weeks Plan of Care Start Date 01/01/19 Plan of Care End Date 03/03/19 Therapeutic Interventions Therapeutic Interventions Aquatic Therapy Balance Training Gait Training Home Exercise Program Joint Mobilizations Manual Therapy Neuromuscular Re-education Patient/Caregiver Education Self-Care/Home Management Soft Tissue Mobilization Taping Therapeutic Activities Therapeutic Exercises Modalities Cold Pack/Ice Massage Electric Stimulation Hot Packs Infrared Therapy Traction- Mechanical Ultrasound Next Visit Focus/Plan Next Note Type Treatment Note Next Visit Plan Assess response to today's treatment, progress HEP as tolerated. Continue with manual treatment, modalities, ther ex, and patient education as tolerated
--- NOTE | 2019-01-20 16:43 | PT.OTN ---
Current Diagnoses Cervicalgia (01/20/19) Other abnormalities of gait and mobility (01/20/19) Physical Therapy Treatment Note PT-OP-A Visit Information Start: 01/01/19 11:22 Freq: Status: Active Protocol: Document 01/20/19 16:36 EA (Rec: 01/20/19 16:43 EA [id number]) Out-Patient Physical Therapy Visit Information Visit Information Visit Type Treatment Note Visit Start Time 15:15 Visit Stop Time 16:00 Total Visit Minutes 45 PT-OP-B Current Condition Start: 01/01/19 11:22 Freq: Status: Active Protocol: Document 01/01/19 10:30 HH (Rec: 01/01/19 12:02 HH [email or web address]) Current Condition History of Current Condition Onset Date 3 months ago Current Complaints sever neck pain, L hip pain and impaired gait History of Current Condition Pt presents to clinic today with primary c/o of severe neck pain R>L, L hip pain and abnormal gait. Pt fell on her L lateral hip 3 months ago and had a large hematoma who had a hematoma removal surgery followed by wound vac for 2 months. She is currently going to wound clinic at for follow ups. She reports her L hip and gait stability has gotten worse since then. She currently cannot sleep on her L side anymore. In addition, her neck pain started 2 months ago most likely due to her sleeping position. Her neck pain limits her to turn her head now while driving and feels like rotated to right all the time, along with constant headache from the back of the skull. She tried ice, lidocane, heat pad but they only helped minimally. Her referring physician told her to cont her activities as tolerated without restriction. She also got bitten at the R big toe by a raccoon 2 weeks and had a staff infection. Future Testing and Treatments Planned Currently attending wound clinic for her L hip Treatment Goals Patient/Caregiver Goals 1. Able to return her exercise routine : racquet ball, hiking, walk at [employer] 3times /week 2. To reduce her neck pain 3. able to sit and sleep on her L side Prior Functional Status Baseline Function- ADL's Independent Baseline Function- Mobility Independent Baseline Function- Gait normal gait Baseline Function- Recreation/Hobbies Active in playing racquet ball , hiking, walk at [employer] 3 times/ week Baseline Function- Other able to sit and sleep on her L side able to turn her head without pain while driving able Current Functional Impairments (Reported) Functional Limitations- ADL's unable to sit /sleep on her L side Functional Limitations- Mobility/Gait antaglic gait on LLE noticed Functional Limitations- Recreation/ unable to play sports, hike Hobbies and long walk only able to tolerate 1/4 mile of walking distance Personal Factors Other Personal Factors That May Effect her current wound on L thigh Therapy/Recovery PT-OP-C Subjective Start: 01/01/19 11:22 Freq: Status: Active Protocol: Document 01/20/19 16:36 EA (Rec: 01/20/19 16:43 EA [id number]) OP-PT Subjective Patient Comments Patient Comments Letf hip wound treament is discharge; neck is bothering her and feels that her neck pain is d/t sleeping on right side. Patient Reported Progress Same PT-OP-F Manual Assessment Start: 01/01/19 11:22 Freq: Status: Active Protocol: Document 01/01/19 10:30 HH (Rec: 01/01/19 12:02 HH [email or web address]) Manual Assessments Soft Tissue Assessment Soft Tissue Mobility Assessment Significant tenderness to pressure on suboccipitals R>L, cervical paraspinals and trapezius Significant sensitive to touch on L trochanteric region Joint Mobility Assessment Joint Mobility Assessment muscle guarding and spasm to touch noticed during assessment. Unable to assess joint mobility PT-OP-G Mobility & Gait Start: 01/01/19 11:22 Freq: Status: Active Protocol: Document 01/01/19 10:30 HH (Rec: 01/01/19 12:02 HH [email or web address]) OP Mobility Evaluation Bed Mobility Supine to and from Sit Pt has to support her r side of the neck OP Gait Assessment Gait Gait Assistance Required: Independent Assistive Devices Assistive Device None Gait Deviations General Gait Pattern Antalgic Decreased Stride Length Decreased Feet Clearance Factors Limiting Gait Function Factors Limiting Gait Function Decreased Activity Tolerance Decreased Strength Limited Range of Motion Pain Poor Balance Comments Gait Comments L antalgic gait noticed. Insufficient heel strike and early heel raise from terminal stance on LLE. PT-OP-J Posture/Palpation/Skin Start: 01/01/19 11:22 Freq: Status: Active Protocol: Document 01/01/19 10:30 HH (Rec: 01/01/19 12:02 HH [email or web address]) Posture Evaluation Position Standing Evaluation View Anterior Head/C-Spine Posture Rotated Right Forward Head T-Spine Posture Increased Kyphosis Shoulder Posture (R) Elevated Weight Distribution Weight Shifted Right PT-OP-K Range of Motion Start: 01/01/19 11:22 Freq: Status: Active Protocol: Document 01/01/19 10:30 HH (Rec: 01/01/19 12:02 HH [email or web address]) Cervical Spine Range of Motion Cervical Spine Active Degrees Testing Position Sitting Flexion 40 Extension 40 Rotation Left 35 Rotation Right 40 Lateral Flexion Left 35 Lateral Flexion Right 35 ROM Limitations Muscle Weakness Muscle Tone Pain Comments Severe pain at end range during AROM (ext > rotation > lateral flexion) Hip Goniometric Range of Motion Hip Right Active Hip ROM WFL Yes Flexion w/Knee Flexed 120 Extension 20 Abduction 40 Left Active Hip ROM WFL Yes Flexion w/Knee Flexed 120 Extension 20 Abduction 40 PT-OP-M Strength Start: 01/01/19 11:22 Freq: Status: Active Protocol: Document 01/01/19 10:30 HH (Rec: 01/01/19 12:02 HH [email or web address]) Cervical Spine Strength Cervical Spine Manual Muscle Testing Testing Position Sitting Flexion (C1-2) 3+ Fair+ Extension 3 Fair Rotation Left 3 Fair Rotation Right 3 Fair Lateral Flexion Left (C3) 3 Fair Lateral Flexion Right (C3) 3 Fair Reason Not Measured Muscle Tone Pain Comments pt presents fear avoidance for muscle contraction, along with significant pain. Noticeable spasm on cervical paraspinals and trapezius. Hip Strength Hip Manual Muscle Testing Right Flexion (L2) 5 Normal Extension (S1) 5 Normal Abduction 5 Normal Adduction 5 Normal Left Flexion (L2) 4+ Good+ Extension (S1) 4+ Good+ Abduction 4- Good- Adduction 4+ Good+ PT-OP-Q Treatments Start: 01/01/19 11:22 Freq: Status: Active Protocol: Document 01/20/19 16:36 EA (Rec: 01/20/19 16:43 EA [id number]) Therapeutic Exercises Supine Exercises cervical rotation Reps/Minutes 5x2 Comments pain-freeROM pec stretch Reps/Minutes 2x30 Comments passive, manual chin tuck Comments refused due to pain Standing Exercises wall posture Standing Exercise Name chin tucked Reps/Minutes 3 min Comments interval due to pain. Manual Therapy Treatment Soft Tissue Mobilization christine UT, c/s Intensity/Depth Superficial Body Position Hooklying Comments gentle suboccipital release Mobilization Type Myofascial Release Sustained Pressure Trigger Point Release Intensity/Depth Superficial Body Position Supine Manual Traction cervical distraction Body Position Supine Reps/Duration 5 mins Manual Techniques 1 Type contract/relax eyes for c/s rotation Body Position Hooklying PT-OP-R Modalities Start: 01/01/19 11:22 Freq: Status: Active Protocol: Document 01/20/19 16:36 EA (Rec: 01/20/19 16:43 EA [id number]) Hot Pack/Cold Pack Treatment Cold Pack Location cervical Patient Position Hooklying Treatment Duration (minutes) 15 PT-OP-T Assessment and Plan Start: 01/01/19 11:22 Freq: Status: Active Protocol: Document 01/20/19 16:36 EA (Rec: 01/20/19 16:43 EA [id number]) Physical Therapy Assessment Assessment Summary Assessment Pt tolerance to exercises in manual therapy seems not improving; advised to cont. postural exercises.
--- NOTE | 2019-01-27 16:27 | PT.OTN ---
Current Diagnoses Cervicalgia (01/27/19) Other abnormalities of gait and mobility (01/27/19) Physical Therapy Treatment Note PT-OP-A Visit Information Start: 01/01/19 11:22 Freq: Status: Active Protocol: Document 01/27/19 14:23 LRN (Rec: 01/27/19 15:07 LRN [id number]) Out-Patient Physical Therapy Visit Information Visit Information Visit Type Treatment Note Visit Start Time 14:23 Visit Stop Time 15:05 Total Visit Minutes 42 Visit Number 3/9 Number of [employer] Visits 0 Evaluation Information Evaluation Date 01/01/19 Precautions Precautions pt has a wound on L lateral thigh PT-OP-B Current Condition Start: 01/01/19 11:22 Freq: Status: Active Protocol: Document 01/01/19 10:30 HH (Rec: 01/01/19 12:02 HH [email or web address]) Current Condition History of Current Condition Onset Date 3 months ago Current Complaints sever neck pain, L hip pain and impaired gait History of Current Condition Pt presents to clinic today with primary c/o of severe neck pain R>L, L hip pain and abnormal gait. Pt fell on her L lateral hip 3 months ago and had a large hematoma who had a hematoma removal surgery followed by wound vac for 2 months. She is currently going to wound clinic at for follow ups. She reports her L hip and gait stability has gotten worse since then. She currently cannot sleep on her L side anymore. In addition, her neck pain started 2 months ago most likely due to her sleeping position. Her neck pain limits her to turn her head now while driving and feels like rotated to right all the time, along with constant headache from the back of the skull. She tried ice, lidocane, heat pad but they only helped minimally. Her referring physician told her to cont her activities as tolerated without restriction. She also got bitten at the R big toe by a raccoon 2 weeks and had a staff infection. Future Testing and Treatments Planned Currently attending wound clinic for her L hip Treatment Goals Patient/Caregiver Goals 1. Able to return her exercise routine : racquet ball, hiking, walk at [employer] 3times /week 2. To reduce her neck pain 3. able to sit and sleep on her L side Prior Functional Status Baseline Function- ADL's Independent Baseline Function- Mobility Independent Baseline Function- Gait normal gait Baseline Function- Recreation/Hobbies Active in playing racquet ball , hiking, walk at [employer] 3 times/ week Baseline Function- Other able to sit and sleep on her L side able to turn her head without pain while driving able Current Functional Impairments (Reported) Functional Limitations- ADL's unable to sit /sleep on her L side Functional Limitations- Mobility/Gait antaglic gait on LLE noticed Functional Limitations- Recreation/ unable to play sports, hike Hobbies and long walk only able to tolerate 1/4 mile of walking distance Personal Factors Other Personal Factors That May Effect her current wound on L thigh Therapy/Recovery PT-OP-C Subjective Start: 01/01/19 11:22 Freq: Status: Active Protocol: Document 01/27/19 14:23 LRN (Rec: 01/27/19 15:07 LRN [id number]) OP-PT Subjective Patient Comments Patient Comments C/O popping and snapping in the neck with associated pain. Will see Dr. Ileana Pritchard in [place] on Saturday. Doing Isometric L SB of head that is causing terrible R neck pain. Not sleeping well. Doing icing and heating at home. Lying down must roll onto stomache to get out of bed. Seeing wound care for L hip hematoma for 4 months. Choosing to ice neck at home. PT-OP-F Manual Assessment Start: 01/01/19 11:22 Freq: Status: Active Protocol: Document 01/01/19 10:30 HH (Rec: 01/01/19 12:02 HH [email or web address]) Manual Assessments Soft Tissue Assessment Soft Tissue Mobility Assessment Significant tenderness to pressure on suboccipitals R>L, cervical paraspinals and trapezius Significant sensitive to touch on L trochanteric region Joint Mobility Assessment Joint Mobility Assessment muscle guarding and spasm to touch noticed during assessment. Unable to assess joint mobility PT-OP-G Mobility & Gait Start: 01/01/19 11:22 Freq: Status: Active Protocol: Document 01/01/19 10:30 HH (Rec: 01/01/19 12:02 HH [email or web address]) OP Mobility Evaluation Bed Mobility Supine to and from Sit Pt has to support her r side of the neck OP Gait Assessment Gait Gait Assistance Required: Independent Assistive Devices Assistive Device None Gait Deviations General Gait Pattern Antalgic Decreased Stride Length Decreased Feet Clearance Factors Limiting Gait Function Factors Limiting Gait Function Decreased Activity Tolerance Decreased Strength Limited Range of Motion Pain Poor Balance Comments Gait Comments L antalgic gait noticed. Insufficient heel strike and early heel raise from terminal stance on LLE. PT-OP-J Posture/Palpation/Skin Start: 01/01/19 11:22 Freq: Status: Active Protocol: Document 01/01/19 10:30 HH (Rec: 01/01/19 12:02 [email or web address]) Posture Evaluation Position Standing Evaluation View Anterior Head/C-Spine Posture Rotated Right Forward Head T-Spine Posture Increased Kyphosis Shoulder Posture (R) Elevated Weight Distribution Weight Shifted Right PT-OP-K Range of Motion Start: 01/01/19 11:22 Freq: Status: Active Protocol: Document 01/01/19 10:30 HH (Rec: 01/01/19 12:02 [email or web address]) Cervical Spine Range of Motion Cervical Spine Active Degrees Testing Position Sitting Flexion 40 Extension 40 Rotation Left 35 Rotation Right 40 Lateral Flexion Left 35 Lateral Flexion Right 35 ROM Limitations Muscle Weakness Muscle Tone Pain Comments Severe pain at end range during AROM (ext > rotation > lateral flexion) Hip Goniometric Range of Motion Hip Right Active Hip ROM WFL Yes Flexion w/Knee Flexed 120 Extension 20 Abduction 40 Left Active Hip ROM WFL Yes Flexion w/Knee Flexed 120 Extension 20 Abduction 40 PT-OP-M Strength Start: 01/01/19 11:22 Freq: Status: Active Protocol: Document 01/01/19 10:30 HH (Rec: 01/01/19 12:02 [email or web address]) Cervical Spine Strength Cervical Spine Manual Muscle Testing Testing Position Sitting Flexion (C1-2) 3+ Fair+ Extension 3 Fair Rotation Left 3 Fair Rotation Right 3 Fair Lateral Flexion Left (C3) 3 Fair Lateral Flexion Right (C3) 3 Fair Reason Not Measured Muscle Tone Pain Comments pt presents fear avoidance for muscle contraction, along with significant pain. Noticeable spasm on cervical paraspinals and trapezius. Hip Strength Hip Manual Muscle Testing Right Flexion (L2) 5 Normal Extension (S1) 5 Normal Abduction 5 Normal Adduction 5 Normal Left Flexion (L2) 4+ Good+ Extension (S1) 4+ Good+ Abduction 4- Good- Adduction 4+ Good+ PT-OP-Q Treatments Start: 01/01/19 11:22 Freq: Status: Active Protocol: Document 01/27/19 14:23 LRN (Rec: 01/27/19 15:07 LRN [id number]) Therapeutic Exercises Supine Exercises Shoulder horiz AB/AD Supine Exercise Name Shoulder Horiz AB/AD Side bilateral Resistance 2# Reps/Minutes 15x2 each hip ab/ER Supine Exercise Name BKFO Equipment Used L2 TB Reps/Minutes 15x2 gluteal set Supine Exercise Name Glut lifts with legs shoulder width apart, T-Band at knees Reps/Minutes 15x cervical rotation Supine Exercise Name AROM Reps/Minutes 2x2 Comments pain-freeROM Shld flex Supine Exercise Name Alternate arm lifts Side bilateral Resistance 2# Reps/Minutes 15 x 2 each Sitting Exercises Cervical Isometrics Sitting Exercise Name Held after pt demonstrated jaret for flex & christine SB Manual Therapy Treatment Soft Tissue Mobilization christine UT, c/s Intensity/Depth Superficial Body Position Hooklying Comments gentle along c/s paraspinal region suboccipital release Body Location Scalenes, gentle STM in suboccipital regioni Mobilization Type Strumming Intensity/Depth Superficial Body Position Supine Comments Low tolerance especially to the R side. Self-Care/Home Management Treatment Education Patient Education Home Exercise Program Pain Management Other Education I/S pt in use of cryotherapy for pain management and discussed hold on cervical ex' s until X-ray report obtained. I/S pt to continue LE ex's. PT-OP-R Modalities Start: 01/01/19 11:22 Freq: Status: Active Protocol: Document 01/20/19 16:36 EA (Rec: 01/20/19 16:43 EA [id number]) Hot Pack/Cold Pack Treatment Cold Pack Location cervical Patient Position Hooklying Treatment Duration (minutes) 15 PT-OP-T Assessment and Plan Start: 01/01/19 11:22 Freq: Status: Active Protocol: Document 01/27/19 14:23 LRN (Rec: 01/27/19 15:07 LRN [id number]) Physical Therapy Assessment Assessment Summary Assessment Held Cervical ex's due to pt R sided neck pain with isometric ex and c/o ongoing neck pain without change. Imaging tests recommended prior to further manual therapy. Physical Therapy Plan Frequency and Duration Frequency of Treatment 2x/Week Duration of Treatment 10 weeks Plan of Care Start Date 01/01/19 Plan of Care End Date 03/03/19 Other Referrals/Consults Referrals/Consults Recommended Recommend imaging of the cervical spine if non has been taken since fall. Next Visit Focus/Plan Next Note Type Treatment Note Next Visit Plan Pt to return to therapy after further imaging of the neck is obtained. Pt to see MD . Continue with manual treatment, modalities, ther ex , and patient education as appropriate once results of test are determined.
--- NOTE | 2019-02-06 16:08 | PT.OTN ---
Current Diagnoses Cervicalgia (02/06/19) Other abnormalities of gait and mobility (02/06/19) Physical Therapy Treatment Note PT-OP-A Visit Information Start: 01/01/19 11:22 Freq: Status: Active Protocol: Document 02/06/19 14:32 LRN (Rec: 02/06/19 15:48 LRN [id number]) Out-Patient Physical Therapy Visit Information Visit Information Visit Type Treatment Note Visit Note X-ray report received. Visit Start Time 14:32 Visit Stop Time 15:19 Total Visit Minutes 47 Visit Number 4/9 Number of STRUCTURAL ENGINEERING TECHNICIAN Visits 0 Evaluation Information Evaluation Date 01/01/19 Precautions Precautions pt has a wound on L lateral thigh PT-OP-B Current Condition Start: 01/01/19 11:22 Freq: Status: Active Protocol: Document 02/06/19 14:32 LRN (Rec: 02/06/19 16:04 LRN [id number]) Current Condition History of Current Condition Onset Date 3 months ago Current Complaints sever neck pain, L hip pain and impaired gait History of Current Condition Pt presents to clinic today with primary c/o of severe neck pain R>L, L hip pain and abnormal gait. Pt fell on her L lateral hip 3 months ago and had a large hematoma who had a hematoma removal surgery followed by wound vac for 2 months. She is currently going to wound clinic at for follow ups. She reports her L hip and gait stability has gotten worse since then. She currently cannot sleep on her L side anymore. In addition, her neck pain started 2 months ago most likely due to her sleeping position. Her neck pain limits her to turn her head now while driving and feels like rotated to right all the time, along with constant headache from the back of the skull. She tried ice, lidocane, heat pad but they only helped minimally. Her referring physician told her to cont her activities as tolerated without restriction. She also got bitten at the R big toe by a raccoon 2 weeks and had a staff infection. Future Testing and Treatments Planned Currently attending wound clinic for her L hip. Developmental History Developmental History X-rays taken 02/02/19: Per X- ray tech Jeet Frye at [facility] X-Ray, X-rays taken were AP, Lateral Odontoid & Obliques. X-ray report indicates for Final Result: cervical aignment is anatomic. No fracture or subluxation. Intervertebral disc spaces preserved. Treatment Goals Patient/Caregiver Goals 1. Able to return her exercise routine : racquet ball, hiking, walk at [employer] 3times /week 2. To reduce her neck pain 3. able to sit and sleep on her L side Prior Functional Status Baseline Function- ADL's Independent Baseline Function- Mobility Independent Baseline Function- Gait normal gait Baseline Function- Recreation/Hobbies Active in playing racquet ball , hiking, walk at [employer] 3 times/ week Baseline Function- Other able to sit and sleep on her L side able to turn her head without pain while driving able Current Functional Impairments (Reported) Functional Limitations- ADL's unable to sit /sleep on her L side Functional Limitations- Mobility/Gait antaglic gait on LLE noticed Functional Limitations- Recreation/ unable to play sports, hike Hobbies and long walk only able to tolerate 1/4 mile of walking distance Personal Factors Other Personal Factors That May Effect her current wound on L thigh Therapy/Recovery PT-OP-C Subjective Start: 01/01/19 11:22 Freq: Status: Active Protocol: Document 02/06/19 14:32 LRN (Rec: 02/06/19 15:48 LRN [id number]) OP-PT Subjective Patient Comments Patient Comments X-Rays done 8 days ago, shows no fractures.. Blood pressure is moderately high, was given ms relaxants and it made a mess of me. Only Tyelonal 1x /day. PT-OP-F Manual Assessment Start: 01/01/19 11:22 Freq: Status: Active Protocol: Document 01/01/19 10:30 HH (Rec: 01/01/19 12:02 HH [email or web address]) Manual Assessments Soft Tissue Assessment Soft Tissue Mobility Assessment Significant tenderness to pressure on suboccipitals R>L, cervical paraspinals and trapezius Significant sensitive to touch on L trochanteric region Joint Mobility Assessment Joint Mobility Assessment muscle guarding and spasm to touch noticed during assessment. Unable to assess joint mobility PT-OP-G Mobility & Gait Start: 01/01/19 11:22 Freq: Status: Active Protocol: Document 01/01/19 10:30 HH (Rec: 01/01/19 12:02 HH [email or web address]) OP Mobility Evaluation Bed Mobility Supine to and from Sit Pt has to support her r side of the neck OP Gait Assessment Gait Gait Assistance Required: Independent Assistive Devices Assistive Device None Gait Deviations General Gait Pattern Antalgic Decreased Stride Length Decreased Feet Clearance Factors Limiting Gait Function Factors Limiting Gait Function Decreased Activity Tolerance Decreased Strength Limited Range of Motion Pain Poor Balance Comments Gait Comments L antalgic gait noticed. Insufficient heel strike and early heel raise from terminal stance on LLE. PT-OP-J Posture/Palpation/Skin Start: 01/01/19 11:22 Freq: Status: Active Protocol: Document 01/01/19 10:30 HH (Rec: 01/01/19 12:02 [email or web address]) Posture Evaluation Position Standing Evaluation View Anterior Head/C-Spine Posture Rotated Right Forward Head T-Spine Posture Increased Kyphosis Shoulder Posture (R) Elevated Weight Distribution Weight Shifted Right PT-OP-K Range of Motion Start: 01/01/19 11:22 Freq: Status: Active Protocol: Document 01/01/19 10:30 HH (Rec: 01/01/19 12:02 [email or web address]) Cervical Spine Range of Motion Cervical Spine Active Degrees Testing Position Sitting Flexion 40 Extension 40 Rotation Left 35 Rotation Right 40 Lateral Flexion Left 35 Lateral Flexion Right 35 ROM Limitations Muscle Weakness Muscle Tone Pain Comments Severe pain at end range during AROM (ext > rotation > lateral flexion) Hip Goniometric Range of Motion Hip Right Active Hip ROM WFL Yes Flexion w/Knee Flexed 120 Extension 20 Abduction 40 Left Active Hip ROM WFL Yes Flexion w/Knee Flexed 120 Extension 20 Abduction 40 PT-OP-M Strength Start: 01/01/19 11:22 Freq: Status: Active Protocol: Document 01/01/19 10:30 HH (Rec: 01/01/19 12:02 [email or web address]) Cervical Spine Strength Cervical Spine Manual Muscle Testing Testing Position Sitting Flexion (C1-2) 3+ Fair+ Extension 3 Fair Rotation Left 3 Fair Rotation Right 3 Fair Lateral Flexion Left (C3) 3 Fair Lateral Flexion Right (C3) 3 Fair Reason Not Measured Muscle Tone Pain Comments pt presents fear avoidance for muscle contraction, along with significant pain. Noticeable spasm on cervical paraspinals and trapezius. Hip Strength Hip Manual Muscle Testing Right Flexion (L2) 5 Normal Extension (S1) 5 Normal Abduction 5 Normal Adduction 5 Normal Left Flexion (L2) 4+ Good+ Extension (S1) 4+ Good+ Abduction 4- Good- Adduction 4+ Good+ PT-OP-Q Treatments Start: 01/01/19 11:22 Freq: Status: Active Protocol: Document 02/06/19 14:32 LRN (Rec: 02/06/19 15:48 LRN [id number]) Therapeutic Exercises Sitting Exercises C. AROM Sitting Exercise Name C. AROM as tolerated Side bilateral Cervical Isometrics Sitting Exercise Name Jaret for flex, Ext, SB Side bilateral Reps/Minutes 20 Comments Tried: self jaret, assisted jaret, and stabilized jaret. Self-Care/Home Management Treatment Education Patient Education Pain Management Activities Self-Care/Home Management Activities Discussed at length appropriate levels of activity for the pt at home. Recommended pt decrease activities involving use of UE 's and that require looking down. Discussed use of heat vs cold pack and when is best to use each. PT-OP-R Modalities Start: 01/01/19 11:22 Freq: Status: Active Protocol: Document 02/06/19 14:32 LRN (Rec: 02/06/19 15:48 LRN [id number]) Ultrasound Therapy Treatment Right Posterior Neck Treatment Duration (minutes) 8 Patient Position Sidelying Coupling Medium Ultrasound Gel Applicator Size (cm2) 2 Frequency Setting (mHz) 1 Mode Setting Pulsed Duty Cycle 50% Intensity Setting (w/cm2) 1.0 PT-OP-T Assessment and Plan Start: 01/01/19 11:22 Freq: Status: Active Protocol: Document 02/06/19 14:32 LRN (Rec: 02/06/19 15:48 LRN [id number]) Physical Therapy Assessment Goals HEP Impairment Pt does not have a HEP Residential Goal (LTG) Pt will comply to HEP independently and safely to improve overall functional strength and mobiltiy therefore she could return to her PLOF (play raquet ball, hiking ..etc) LTG Duration 10 weeks activity tolerance Impairment unable to claude > 1/4 mile of walking distance Residential Goal (LTG) Pt will be able to walk 1 mile 3 times a week to improve overall activity tolerance and functional mobility. 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 LTG Duration 10 weeks Assessment Summary Assessment X-ray report indicates no fractures or subluxations and normal cervical alignment. Pt pain complaintsdo not appear to be consistent with imaging results. Pt may be doing too many activities at home from discussions. She may also need to increase use of ice at home to decrease pain in R suboccipital region. One time she seemed to have a little relief with approximation of head on shoulders. Physical Therapy Plan Frequency and Duration Frequency of Treatment 2x/Week Duration of Treatment 10 weeks Plan of Care Start Date 01/01/19 Plan of Care End Date 03/03/19 Next Visit Focus/Plan Next Note Type Treatment Note Next Visit Plan Check if pt saw MD 02/04/19. Assess pt's response to use of ultrasound and try approximation of head on shoulders for cervical Isometric ex's. Continue with manual treatment, modalities, ther ex, and patient education as appropriate to improve neck stability, strength and mobility to return to prior level of function; and decreased pain on hip to tolerate L sidelie.
--- NOTE | 2019-02-12 16:38 | PT.OTN ---
Current Diagnoses Cervicalgia (02/12/19) Other abnormalities of gait and mobility (02/12/19) Physical Therapy Treatment Note PT-OP-A Visit Information Start: 01/01/19 11:22 Freq: Status: Active Protocol: Document 02/12/19 14:18 LRN (Rec: 02/12/19 15:04 LRN [id number]) Out-Patient Physical Therapy Visit Information Visit Information Visit Type Treatment Note Visit Note X-ray report received. Visit Start Time 14:18 Visit Stop Time 15:02 Total Visit Minutes 44 Visit Number 5/9 Number of SENIOR PRODUCT ENGINEER Visits 0 Evaluation Information Evaluation Date 01/01/19 Precautions Precautions pt has a wound on L lateral thigh PT-OP-B Current Condition Start: 01/01/19 11:22 Freq: Status: Active Protocol: Document 02/06/19 14:32 LRN (Rec: 02/06/19 16:04 LRN [id number]) Current Condition History of Current Condition Onset Date 3 months ago Current Complaints sever neck pain, L hip pain and impaired gait History of Current Condition Pt presents to clinic today with primary c/o of severe neck pain R>L, L hip pain and abnormal gait. Pt fell on her L lateral hip 3 months ago and had a large hematoma who had a hematoma removal surgery followed by wound vac for 2 months. She is currently going to wound clinic at for follow ups. She reports her L hip and gait stability has gotten worse since then. She currently cannot sleep on her L side anymore. In addition, her neck pain started 2 months ago most likely due to her sleeping position. Her neck pain limits her to turn her head now while driving and feels like rotated to right all the time, along with constant headache from the back of the skull. She tried ice, lidocane, heat pad but they only helped minimally. Her referring physician told her to cont her activities as tolerated without restriction. She also got bitten at the R big toe by a raccoon 2 weeks and had a staff infection. Future Testing and Treatments Planned Currently attending wound clinic for her L hip. Developmental History Developmental History X-rays taken 02/02/19: Per X- ray tech Jeet Frye at [facility] X-Ray, X-rays taken were AP, Lateral Odontoid & Obliques. X-ray report indicates for Final Result: cervical aignment is anatomic. No fracture or subluxation. Intervertebral disc spaces preserved. Treatment Goals Patient/Caregiver Goals 1. Able to return her exercise routine : racquet ball, hiking, walk at [employer] 3times /week 2. To reduce her neck pain 3. able to sit and sleep on her L side Prior Functional Status Baseline Function- ADL's Independent Baseline Function- Mobility Independent Baseline Function- Gait normal gait Baseline Function- Recreation/Hobbies Active in playing racquet ball , hiking, walk at [employer] 3 times/ week Baseline Function- Other able to sit and sleep on her L side able to turn her head without pain while driving able Current Functional Impairments (Reported) Functional Limitations- ADL's unable to sit /sleep on her L side Functional Limitations- Mobility/Gait antaglic gait on LLE noticed Functional Limitations- Recreation/ unable to play sports, hike Hobbies and long walk only able to tolerate 1/4 mile of walking distance Personal Factors Other Personal Factors That May Effect her current wound on L thigh Therapy/Recovery PT-OP-C Subjective Start: 01/01/19 11:22 Freq: Status: Active Protocol: Document 02/12/19 14:18 LRN (Rec: 02/12/19 15:04 LRN [id number]) OP-PT Subjective Patient Comments Patient Comments Scheduled for MRI 02/20/19 @ [facility]. PT-OP-F Manual Assessment Start: 01/01/19 11:22 Freq: Status: Active Protocol: Document 01/01/19 10:30 HH (Rec: 01/01/19 12:02 HH [email or web address]) Manual Assessments Soft Tissue Assessment Soft Tissue Mobility Assessment Significant tenderness to pressure on suboccipitals R>L, cervical paraspinals and trapezius Significant sensitive to touch on L trochanteric region Joint Mobility Assessment Joint Mobility Assessment muscle guarding and spasm to touch noticed during assessment. Unable to assess joint mobility PT-OP-G Mobility & Gait Start: 01/01/19 11:22 Freq: Status: Active Protocol: Document 01/01/19 10:30 HH (Rec: 01/01/19 12:02 HH [email or web address]) OP Mobility Evaluation Bed Mobility Supine to and from Sit Pt has to support her r side of the neck OP Gait Assessment Gait Gait Assistance Required: Independent Assistive Devices Assistive Device None Gait Deviations General Gait Pattern Antalgic Decreased Stride Length Decreased Feet Clearance Factors Limiting Gait Function Factors Limiting Gait Function Decreased Activity Tolerance Decreased Strength Limited Range of Motion Pain Poor Balance Comments Gait Comments L antalgic gait noticed. Insufficient heel strike and early heel raise from terminal stance on LLE. PT-OP-J Posture/Palpation/Skin Start: 01/01/19 11:22 Freq: Status: Active Protocol: Document 01/01/19 10:30 HH (Rec: 01/01/19 12:02 [email or web address]) Posture Evaluation Position Standing Evaluation View Anterior Head/C-Spine Posture Rotated Right Forward Head T-Spine Posture Increased Kyphosis Shoulder Posture (R) Elevated Weight Distribution Weight Shifted Right PT-OP-K Range of Motion Start: 01/01/19 11:22 Freq: Status: Active Protocol: Document 01/01/19 10:30 HH (Rec: 01/01/19 12:02 [email or web address]) Cervical Spine Range of Motion Cervical Spine Active Degrees Testing Position Sitting Flexion 40 Extension 40 Rotation Left 35 Rotation Right 40 Lateral Flexion Left 35 Lateral Flexion Right 35 ROM Limitations Muscle Weakness Muscle Tone Pain Comments Severe pain at end range during AROM (ext > rotation > lateral flexion) Hip Goniometric Range of Motion Hip Right Active Hip ROM WFL Yes Flexion w/Knee Flexed 120 Extension 20 Abduction 40 Left Active Hip ROM WFL Yes Flexion w/Knee Flexed 120 Extension 20 Abduction 40 PT-OP-M Strength Start: 01/01/19 11:22 Freq: Status: Active Protocol: Document 01/01/19 10:30 HH (Rec: 01/01/19 12:02 [email or web address]) Cervical Spine Strength Cervical Spine Manual Muscle Testing Testing Position Sitting Flexion (C1-2) 3+ Fair+ Extension 3 Fair Rotation Left 3 Fair Rotation Right 3 Fair Lateral Flexion Left (C3) 3 Fair Lateral Flexion Right (C3) 3 Fair Reason Not Measured Muscle Tone Pain Comments pt presents fear avoidance for muscle contraction, along with significant pain. Noticeable spasm on cervical paraspinals and trapezius. Hip Strength Hip Manual Muscle Testing Right Flexion (L2) 5 Normal Extension (S1) 5 Normal Abduction 5 Normal Adduction 5 Normal Left Flexion (L2) 4+ Good+ Extension (S1) 4+ Good+ Abduction 4- Good- Adduction 4+ Good+ PT-OP-Q Treatments Start: 01/01/19 11:22 Freq: Status: Active Protocol: Document 02/12/19 14:18 LRN (Rec: 02/12/19 15:04 LRN [id number]) Therapeutic Exercises Supine Exercises C AROM Supine Exercise Name Active C rotation as tolerated on MH Side bilateral Alternate arm lifts Supine Exercise Name Alternate shoulder flex Side bilateral Resistance 3# Equipment Used MH to neck Reps/Minutes 15 x 3 Shoulder horiz AB/AD Supine Exercise Name Shoulder Horiz AB/AD Side bilateral Resistance 3# Equipment Used MH to neck Reps/Minutes 15x3 each Sitting Exercises Chin tucks Sitting Exercise Name Chin tucks ans with C. AROM Side bilateral C. AROM Sitting Exercise Name C. AROM with approximation, as tolerated Side bilateral Comments Training for chin tuck before rot Cervical Isometrics Sitting Exercise Name Jaret for flex, Ext, sidebend Side bilateral Reps/Minutes 20 Comments Self jaret Manual Therapy Treatment Soft Tissue Mobilization Head Body Location R lateral head Mobilization Type Myofascial Release Body Position Hooklying Comments Good release christine [place], c/s Mobilization Type Strumming Intensity/Depth Superficial Body Position Hooklying Comments gentle along c/s paraspinal region PT-OP-R Modalities Start: 01/01/19 11:22 Freq: Status: Active Protocol: Document 02/06/19 14:32 LRN (Rec: 02/06/19 15:48 LRN [id number]) Ultrasound Therapy Treatment Right Posterior Neck Treatment Duration (minutes) 8 Patient Position Sidelying Coupling Medium Ultrasound Gel Applicator Size (cm2) 2 Frequency Setting (mHz) 1 Mode Setting Pulsed Duty Cycle 50% Intensity Setting (w/cm2) 1.0 PT-OP-T Assessment and Plan Start: 01/01/19 11:22 Freq: Status: Active Protocol: Document 02/12/19 14:18 LRN (Rec: 02/12/19 15:04 LRN [id number]) Physical Therapy Assessment Assessment Summary Assessment No significant improvement after last session. Pt expected muscle guarding at the neck/shoulders do not appear to be consistent with pain complaints (no significant muscle guarding). Pt is doing many activities at home from discussions ( removal of blackberry bushes). Physical Therapy Plan Frequency and Duration Frequency of Treatment 2x/Week Duration of Treatment 10 weeks Plan of Care Start Date 01/01/19 Plan of Care End Date 03/03/19 Next Visit Focus/Plan Next Note Type Treatment Note Next Visit Plan Hold appt until after further test results are obtained. Discuss need to increase use of ice at home to decrease pain in R suboccipital region. Continue with manual treatment, modalities, ther ex , and patient education as appropriate to improve neck stability, strength and mobility to return to prior level of function; and decrease pain on hip to improve tolerance to L sidelie . Might check for fascial tightness from L hip to R occiput.
--- NOTE | 2019-02-12 16:38 | PT-OP ANOTE ---
Called Dr. Ileana Pritchard to discuss pt's pending MRI. Per BERENICE Carranza @ [facility] the pt is scheduled for an ultrasound of her Carotid Arteries and not an MRI. No MRI is planned. Message left noted my concern regarding pt's pain complaints not being consistent with expected muscle guarding of the neck and upper shoulders. 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 Tere NG will relate the message to Dr. Pritchard.
--- NOTE | 2019-02-24 14:01 | PT-OP ANOTE ---
Patient arrived on time with no acute distress; upon sitting on the chair patient held her to neck with acute distress and mobility difficulty and reports physical therapy is not helping her. She reports that she does not know what's going to her neck and only she knows is DJD of the cervical region. She reports I all I know is that it stated when I had wound vacuum to my hip. She in agreeable with me to see her physician again to request further assessment. I have explained that there might be other options for her doctor if physical therapy is not working.
--- NOTE | 2019-05-12 15:05 | PT.OPDS ---
Current Diagnoses Cervicalgia (02/12/19) Other abnormalities of gait and mobility (02/12/19) Visit Care Team Role Provider Type ROXIE Bernard Attending Provider Non-Staff Primary Care Provider Specialty: Medical Address: [address] [place] [address], [place], [address] Email: Visit Number Visit Number 11/20 Discharge Summary PT-OP-B Current Condition Start: 01/01/19 11:22 Freq: Status: Active Protocol: Document 02/06/19 14:32 LRN (Rec: 02/06/19 16:04 LRN [id number]) Current Condition History of Current Condition Onset Date 3 months ago Current Complaints sever neck pain, L hip pain and impaired gait History of Current Condition Pt presents to clinic today with primary c/o of severe neck pain R>L, L hip pain and abnormal gait. Pt fell on her L lateral hip 3 months ago and had a large hematoma who had a hematoma removal surgery followed by wound vac for 2 months. She is currently going to wound clinic at for follow ups. She reports her L hip and gait stability has gotten worse since then. She currently cannot sleep on her L side anymore. In addition, her neck pain started 2 months ago most likely due to her sleeping position. Her neck pain limits her to turn her head now while driving and feels like rotated to right all the time, along with constant headache from the back of the skull. She tried ice, lidocane, heat pad but they only helped minimally. Her referring physician told her to cont her activities as tolerated without restriction. She also got bitten at the R big toe by a raccoon 2 weeks and had a staff infection. Future Testing and Treatments Planned Currently attending wound clinic for her L hip. Developmental History Developmental History X-rays taken 02/02/19: Per X- ray tech [facility], X-rays taken were AP, Lateral Odontoid & Obliques. X-ray report indicates for Final Result: cervical aignment is anatomic. No fracture or subluxation. Intervertebral disc spaces preserved. Treatment Goals Patient/Caregiver Goals 1. Able to return her exercise routine : racquet ball, hiking, walk at [email or web address] [place] 3times /week 2. To reduce her neck pain 3. able to sit and sleep on her L side Prior Functional Status Baseline Function- ADL's Independent Baseline Function- Mobility Independent Baseline Function- Gait normal gait Baseline Function- Recreation/Hobbies Active in playing racquet ball , hiking, walk at [employer] 3 times/ week Baseline Function- Other able to sit and sleep on her L side able to turn her head without pain while driving able Current Functional Impairments (Reported) Functional Limitations- ADL's unable to sit /sleep on her L side Functional Limitations- Mobility/Gait antaglic gait on LLE noticed Functional Limitations- Recreation/ unable to play sports, hike Hobbies and long walk only able to tolerate 1/4 mile of walking distance Personal Factors Other Personal Factors That May Effect her current wound on L thigh Therapy/Recovery PT-OP-C Subjective Start: 01/01/19 11:22 Freq: Status: Active Protocol: Document 02/12/19 14:18 LRN (Rec: 02/12/19 15:04 LRN [id number]) OP-PT Subjective Patient Comments Patient Comments Scheduled for MRI 02/20/19 @ [facility]. PT-OP-F Manual Assessment Start: 01/01/19 11:22 Freq: Status: Active Protocol: Document 01/01/19 10:30 HH (Rec: 01/01/19 12:02 HH [email or web address]) Manual Assessments Soft Tissue Assessment Soft Tissue Mobility Assessment Significant tenderness to pressure on suboccipitals R>L, cervical paraspinals and trapezius Significant sensitive to touch on L trochanteric region Joint Mobility Assessment Joint Mobility Assessment muscle guarding and spasm to touch noticed during assessment. Unable to assess joint mobility PT-OP-G Mobility & Gait Start: 01/01/19 11:22 Freq: Status: Active Protocol: Document 01/01/19 10:30 HH (Rec: 01/01/19 12:02 HH [email or web address]) OP Mobility Evaluation Bed Mobility Supine to and from Sit Pt has to support her r side of the neck OP Gait Assessment Gait Gait Assistance Required: Independent Assistive Devices Assistive Device None Gait Deviations General Gait Pattern Antalgic,Decreased Stride Length,Decreased Feet Clearance Factors Limiting Gait Function Factors Limiting Gait Function Decreased Activity Tolerance, Decreased Strength,Limited Range of Motion,Pain,Poor Balance Comments Gait Comments L antalgic gait noticed. Insufficient heel strike and early heel raise from terminal stance on LLE. PT-OP-J Posture/Palpation/Skin Start: 01/01/19 11:22 Freq: Status: Active Protocol: Document 01/01/19 10:30 HH (Rec: 01/01/19 12:02 [email or web address]) Posture Evaluation Position Standing Evaluation View Anterior Head/C-Spine Posture Rotated Right,Forward Head T-Spine Posture Increased Kyphosis Shoulder Posture (R) Elevated Weight Distribution Weight Shifted Right PT-OP-K Range of Motion Start: 01/01/19 11:22 Freq: Status: Active Protocol: Document 01/01/19 10:30 HH (Rec: 01/01/19 12:02 [email or web address]) Cervical Spine Range of Motion Cervical Spine Active Degrees Testing Position Sitting Flexion 40 Extension 40 Rotation Left 35 Rotation Right 40 Lateral Flexion Left 35 Lateral Flexion Right 35 ROM Limitations Muscle Weakness,Muscle Tone, Pain Comments Severe pain at end range during AROM (ext > rotation > lateral flexion) Hip Goniometric Range of Motion Hip Right Active Hip ROM WFL Yes Flexion w/Knee Flexed 120 Extension 20 Abduction 40 Left Active Hip ROM WFL Yes Flexion w/Knee Flexed 120 Extension 20 Abduction 40 PT-OP-M Strength Start: 01/01/19 11:22 Freq: Status: Active Protocol: Document 01/01/19 10:30 HH (Rec: 01/01/19 12:02 [email or web address]) Cervical Spine Strength Cervical Spine Manual Muscle Testing Testing Position Sitting Flexion (C1-2) 3+ Fair+ Extension 3 Fair Rotation Left 3 Fair Rotation Right 3 Fair Lateral Flexion Left (C3) 3 Fair Lateral Flexion Right (C3) 3 Fair Reason Not Measured Muscle Tone,Pain Comments pt presents fear avoidance for muscle contraction, along with significant pain. Noticeable spasm on cervical paraspinals and trapezius. Hip Strength Hip Manual Muscle Testing Right Flexion (L2) 5 Normal Extension (S1) 5 Normal Abduction 5 Normal Adduction 5 Normal Left Flexion (L2) 4+ Good+ Extension (S1) 4+ Good+ Abduction 4- Good- Adduction 4+ Good+ PT-OP-T Assessment and Plan Start: 01/01/19 11:22 Freq: Status: Active Protocol: Document 05/12/19 15:02 HH (Rec: 05/12/19 15:05 [email or web address]) Physical Therapy Plan Discharge Physical Therapy Discharge Reasons Patient Request Discharge Comments Per EMR from February, pt stated PT is not helping her cervical spine. Requested to be d/c.
== END 2019-05-13 15:29 | disposition home or self-care (01) ==
LOC: PHYS 14:15
PROVIDERS: PCP Nurse Practitioner Family; Visit Provider Nurse Practitioner Family
DX: R26.89 Other abnormalities of gait and mobility (principal); M54.2 Cervicalgia
CPT/HCPCS: 97010; 97035; 97110; 97140; 97163; 97535